=== PATIENT | male | born 1995 | race Caucasian/White ===

== ENCOUNTER 2022-11-19 13:58 | Outpatient (CLI) | payer BC, SELFPAY ==
[2022-11-19 18:52] LABS: Hematocrit 46.6 % (42.0-52.0); Hemoglobin 15.7 g/dL (14.0-18.0); Mean Corpuscular HGB Conc 33.7 g/dl (32-36); Mean Corpuscular Hemoglobin 29.4 pg (26-34); Mean Corpuscular Volume 87.3 fl (80-100); Mean Platelet Volume 8.5 fl (7.4-10.4); Platelet Count Result 296 k/mm3 (150-375); Red Blood Count 5.34 M/mm3 (4.6-6.20); White Blood Count 5.9 K/mm3 (4.5-10.0)
[2022-11-19 18:54] LABS: Alanine Aminotransferase 40 U/L (6-50); Albumin Level 4.8 g/dL (3.5-5.1); Alkaline Phosphatase 81 U/L (38-126); Anion Gap 12 mmol/L (8-16); Aspartate Amino Transferase 61 U/L (17-59); Bilirubin,Total 0.8 mg/dL (0.2-1.3); Blood Urea Nitrogen 14 mg/dL (9-20); Calcium 9.5 mg/dL (8.4-10.2); Carbon Dioxide 25 mmol/L (22-30); Chloride 103 mmol/L (98-107); Cholesterol 250 mg/dL (0-200); Estimated Glomerular Filt Rate > 60; Glucose 97 mg/dL (65-110); HDL Direct 51 mg/dL; Potassium 4.3 mmol/L (3.4-5.0); Sodium 140 mmol/L (137-145); Triglycerides 122 mg/dL (<150)
[2022-11-19 19:05] LABS: LDL Cholesterol Direct 153 mg/dL
[2022-11-19 20:31] LABS: Folic Acid 6.3 ng/mL (2.76->20)
== END 2022-11-19 13:59 | disposition home or self-care (01) ==
PROVIDERS: PCP Nurse Practitioner Adult Health; Visit Provider Nurse Practitioner Adult Health
DX: F41.9 Anxiety disorder, unspecified (principal)
CPT/HCPCS: 36415; 80048; 80061; 80076; 82607; 82746; 84443; 85027

== ENCOUNTER 2023-04-22 10:35 | Outpatient (CLI) | payer BC, SELFPAY ==
[2023-04-22 19:59] LABS: HIV 1/2 Ab P24 Ag Result Negative (Negative)
[2023-04-22 21:08] LABS: Trichomonas Vag PCR NOT DETECTED (NOT DETECTE)
[2023-04-22 21:32] LABS: Chlamydia trachomatis NOT DETECTED (NOT DETECTE); Neisseria gonorrhoeae PCR NOT DETECTED (NOT DETECTE)
[2023-04-22 22:14] LABS: Add Urine Microscopic? NO; Appearance Urine Clear (Clear); Color Urine Yellow (Yellow); Protein Urine Negative (Negative); Specific Grav Ur 1.025 (1.001-1.035)
[2023-04-22 22:15] LABS: Bilirubin Urine Negative (Negative); Blood Urine Negative (Negative); Glucose Urine UA Negative (Negative); Ketones Urine Negative (Negative); Leukocyte Esterase Ur Negative LEU/UL (NEGATIVE); Nitrate Urine Negative (Negative); Urobilinogen Urine 0.2 mg/dL (<2.0)
[2023-04-23 13:59] LABS: Rapid Plasma Reagin Non-Reactive (NonReactive)
== END 2023-04-22 10:36 | disposition home or self-care (01) ==
PROVIDERS: PCP Nurse Practitioner Adult Health; Visit Provider Nurse Practitioner Adult Health
DX: Z72.51 High risk heterosexual behavior (principal); R36.1 Hematospermia
CPT/HCPCS: 36415; 81003; 86592; 86695; 86696; 86703; 87491; 87591; 87661; G0432

== ENCOUNTER 2023-10-27 15:55 | Outpatient (CLI) | payer BC, SELFPAY ==
[2023-10-27 20:56] LABS: Trichomonas Vag PCR NOT DETECTED (NOT DETECTE)
[2023-10-27 21:21] LABS: Chlamydia trachomatis NOT DETECTED (NOT DETECTE); Neisseria gonorrhoeae PCR DETECTED (NOT DETECTE)
[2023-10-28 08:41] LABS: Rapid Plasma Reagin Non-Reactive (NonReactive)
== END 2023-10-27 15:56 | disposition home or self-care (01) ==
LOC: ANHBWCLAB 15:58
PROVIDERS: PCP Nurse Practitioner Adult Health; Visit Provider Nurse Practitioner Adult Health
DX: Z11.3 Encounter for screening for infections with a predominantly sexual mode of transmission (principal); R36.9 Urethral discharge, unspecified
CPT/HCPCS: 36415; 86592; 87491; 87536; 87591; 87661

== ENCOUNTER 2025-02-01 11:59 | Outpatient (CLI) | payer OTHER, SELFPAY ==
--- OUTSIDE RECORDS SUMMARY | 2025-02-01 14:49 | XMS_ITS | Patient Health Record ---
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 Name Role Phone Fabiana Baugh Unavailable [phone] Reason For Referral No Information Medications Medication SIG (Take, Route, Frequency, Duration) Notes Start Date End Date Status Escitalopram Oxalate 10 MG Tablet Oral Active ID Now COVID-19 Kit In Vitro *Reorder fro m Medispan for eRx and Interaction Alerts* Active Sertraline HCl 100 MG Tablet Oral Active buPROPion HCl ER (XL) 150 MG Tablet Extended Release 24 Hour Oral Active traZODone HCl 50 MG Tablet Oral Active traZODone HCl 100 MG Tablet Oral Active Sertraline HCl 50 MG Tablet Oral Active Social History Social History Additional Details Category Social Info Options Details Migrated Social History Migrated Social History Tobacco Years: Former smoker 12/25/2022 Plan Of Treatment No Information Insurance Providers Payer Name Payer Address Payer Phone Subscriber Number Group Number Insured Name Patient Relationship to Insured Coverage Start Date Coverage End Date [facility] [place] [address] [place] [address] [id number] SEGURA Self - patient is the insured
[2025-02-01 20:27] LABS: Trichomonas Vag PCR NOT DETECTED (NOT DETECTE)
[2025-02-01 22:21] LABS: Syphilis IgG/IgM Antibody Non-Reactive (Nonreactive)
[2025-02-03 23:07] LABS: HIV-1 RNA Non Reactive (Non Reactive); HIV-2 RNA Non Reactive (Non Reactive)
== END 2025-02-01 12:00 | disposition home or self-care (01) ==
LOC: ANHBWCLAB 12:01
PROVIDERS: PCP Nurse Practitioner Adult Health; Visit Provider Nurse Practitioner Adult Health
DX: Z11.3 Encounter for screening for infections with a predominantly sexual mode of transmission (principal); Z20.6 Contact with and (suspected) exposure to human immunodeficiency virus [HIV]; Z20.2 Contact with and (suspected) exposure to infections with a predominantly sexual mode of transmission; Z72.89 Other problems related to lifestyle
CPT/HCPCS: 36415; 86593; 87491; 87535; 87591; 87661